=== PATIENT | male | born 1950 | race Caucasian/White ===

== ENCOUNTER 2017-04-12 09:27 | Day surgery (SDC) | payer MEDICARE ==
[~2017-04-12 09:27] MED LIST: Buffered Lidocaine 0.9% SYRIN* 5 ML/SYR SYRINGE INTRADERM ONE
[2017-04-12] MEDS ORDERED: Midazolam* 1 MG/ML 2 ML VIAL (2 MG) ONE (10:09)
[2017-04-12] MEDS ORDERED: fentaNYL* 50 MCG/ML 2 ML VIAL (100 MCG VIAL) ONE (10:09)
[2017-04-12] MEDS ORDERED: Propofol* 10 MG/ML 20 ML BTL IV PUSH ONE (10:13)
[2017-04-12] MEDS ORDERED: Bupivacaine 0.25% SDV* 30 ML ONE (10:31)
[2017-04-12 11:27] VITALS: BP 141/83
--- NOTE | 2017-04-13 07:57 | OP ---
DATE OF OPERATION: 04/12/17 - [facility] DATE OF : 50 SURGEON: Lexx Huff MD INSTRUMENT MAKER: CRISTIAN Garner ANESTHESIOLOGIST: Dr. Stein. ANESTHESIA: Local MAC. PRE-OP DIAGNOSIS: Right carpal tunnel syndrome. POST-OP DIAGNOSIS: Right carpal tunnel syndrome. OPERATIVE PROCEDURE: Right open carpal tunnel release. INDICATIONS: Basil is a 66-year-old male who for over a year has had progressive symptoms of right carpal tunnel syndrome. He had this confirmed electrodiagnostically. He has tried nonoperative treatment. We talked about risks and benefits. He wanted to proceed with the right carpal tunnel release. ESTIMATED BLOOD LOSS: 2 mL. COMPLICATIONS: None. FINDINGS: As expected. DESCRIPTION OF PROCEDURE: Basil was seen in the preoperative holding area. The correct site and side of the procedure were identified. We came back to the operating room where we had a timeout and he got some anesthesia and then I infiltrated the operative area with 0.25% plain Marcaine. The arm was then prepped and draped in the usual fashion and formal timeout was performed. The arm was exsanguinated with an Esmarch and the tourniquet inflated to 250 mmHg. I then made a 3 cm longitudinal incision in the typical location for an open carpal tunnel release. Dissection was carried down through the subcutaneous tissue and palmar fascia to expose the transverse carpal ligament. The hook of the hamate was palpated and the transverse carpal ligament was released from distal to proximal, just at the radial aspect of the hook of the hamate. When I got to the level of the wrist flexion crease, I went ahead and released the subcutaneous tissue and retracted this volarly and ulnarly. I placed a Wen retractor and then under direct visualization I released the remainder of the transverse carpal ligament and distal antebrachial fascial right off the ulnar aspect of the palmaris longus tendon to a level of several centimeters proximal to the wrist flexion crease. The decompression was inspected and the nerve was very nicely released proximally and distally. There was quite a bit of synovitis in the carpal tunnel. I had him flex and extend the fingers multiple times, as he was fairly awake at this point and everything was looking good and working nicely. So, I went ahead and irrigated out the wound. The skin was closed with 4-0 nylon sutures. The wound was dressed with Xeroform, 4x4s, sterile Webril, and an Eliu bandage. Tourniquet was deflated. He was then taken to the recovery room in stable condition. [id number]/[facility] #: [id number] ENRRIQUE
== END 2017-04-12 11:41 | disposition home or self-care (01) ==
LOC: OREAST 09:27
PROVIDERS: ATTEND Orthopaedic Surgery Hand Surgery
DX: G56.01 Carpal tunnel syndrome, right upper limb (principal)
CPT/HCPCS: 36415; 86803; J2250; J2704; J3010